=== PATIENT | female | born 1995 | race Caucasian/White ===

== ENCOUNTER → 2021-03-05 | Outpatient (CLI) | payer OTHER ==
--- NOTE | 2021-03-05 10:58 | REP ---
INDICATION: ACHILLES TENDINITIS. COMPARISON: None. TECHNIQUE: Four views FINDINGS: No acute fracture or destructive osseous lesion. The mortise is intact. There is a plantar calcaneal heel spur IMPRESSION: No acute abnormality <Electronically signed by Dereje Aguilar > 03/05/21 [id number]
--- NOTE | 2021-03-05 11:01 | REP ---
INDICATION: ACHILLES TENDINITIS COMPARISON: None. TECHNIQUE: TWO ORTHOGONAL VIEWS OF THE LEFT CALCANEUS. FINDINGS: CALCANEUS IS INTACT. SMALL CALCANEAL HEEL SPUR NOTED. ASSOCIATED JOINT SPACES ARE NORMAL. SURROUNDING SOFT TISSUES ARE UNREMARKABLE. IMPRESSION: NORMAL CALCANEAL RADIOGRAPHS.. INCIDENTAL SMALL CALCANEAL HEEL SPUR. <Electronically signed by Sherwin Loco > 03/05/21 [id number]
== END ==
LOC: M WUC 10:35
PROVIDERS: ATTEND Physician Assistant
DX: M76.52 Patellar tendinitis, left knee (principal); M25.572 Pain in left ankle and joints of left foot; M77.32 Calcaneal spur, left foot

== ENCOUNTER 2021-04-29 12:27 | Emergency (ER) | payer OTHER ==
[~2021-04-29] VITALS: Ht 170.2 cm; Wt 95.9 kg
[2021-04-29 17:48] LABS: BASO % 0.6 % (0.0-1.0); EOS # 0.1 10^3/uL (0.0-0.5); EOS % 1.7 % (0.0-3.0); HEMATOCRIT 40.8 % (36.0-47.0); HEMOGLOBIN 13.5 g/dl (12.0-15.5); LYMPH # 1.8 10^3/uL (1.5-5.0); LYMPH % 25.1 % (24.0-44.0); MEAN CORPUSCULAR HEMOGLOBIN 26.7 pg (27.0-33.0); MEAN CORPUSCULAR HGB CONC 33.1 g/dl (32.0-36.5); MEAN CORPUSCULAR VOLUME 80.8 fl (80.0-96.0); MONO # 0.4 10^3/uL (0.0-0.8); MONO % 5.3 % (2.0-8.0); NEUTROPHILS # 4.8 10^3/uL (1.5-8.5); NEUTROPHILS % 66.9 % (36.0-66.0); PLATELET COUNT, AUTOMATED 398 10^3/uL (150-450); RED BLOOD COUNT 5.05 10^6/uL (4.00-5.40); WHITE BLOOD COUNT 7.2 10^3/uL (4.0-10.0)
[2021-04-29 18:17] LABS: ALBUMIN 3.6 GM/DL (3.2-5.2); ALT/SGPT 15 U/L (12-78); BILIRUBIN,DIRECT 0.2 MG/DL (0.0-0.2); BILIRUBIN,TOTAL 0.6 MG/DL (0.2-1.0); BLOOD UREA NITROGEN 7 MG/DL (7-18); CALCIUM LEVEL 9.3 MG/DL (8.5-10.1); CARBON DIOXIDE LEVEL 26 MEQ/L (21-32); CHLORIDE LEVEL 107 MEQ/L (98-107); CREATININE FOR GFR 0.76 MG/DL (0.55-1.30); GLOMERULAR FILTRATION RATE > 60.0 (>60); GLUCOSE, FASTING 88 MG/DL (70-100); LIPASE 76 U/L (73-393); POTASSIUM SERUM 4.4 MEQ/L (3.5-5.1); SODIUM LEVEL 138 MEQ/L (136-145); TOTAL PROTEIN 7.3 GM/DL (6.4-8.2)
[2021-04-29 18:27] LABS: HCG, SERUM QUALITATIVE NEGATIVE (NEGATIVE)
[2021-04-29] MEDS ORDERED: KETOROLAC 30 MG/ML 1ML VIAL IV ONE (18:30)
[2021-04-29] MEDS ORDERED: NS 1,000 ML IV ONE (18:30)
[2021-04-29] MEDS ORDERED: ONDANSETRON 4MG/2ML VIAL IV ONE (18:30)
--- NOTE | 2021-04-29 19:28 | REP ---
INDICATION: RUQ pain started suddenly last night. fam hx of GB disease. COMPARISON: None TECHNIQUE: Real-time sonographic evaluation of the right upper quadrant FINDINGS: Multiple ultrasonographic images of the liver show the hepatic parenchymal echo texture to appear unremarkable. There are no focal masses. There is no intrahepatic ductal dilatation. The common bile duct measures approximately 4 mm in its greatest transverse dimension. Multiple ultrasonographic images of the gallbladder show no focal or diffuse gallbladder wall thickening. There are no echogenic foci within the gallbladder lumen, which casts acoustic shadows. There is no pericholecystic edema. Images of the pancreatic region show no gross abnormality. The imaged portion of the right kidney is unremarkable. IMPRESSION: Unremarkable right upper quadrant ultrasound. Accredited by the [employer] in General Ultrasound. <Electronically signed by Dereje Aguilar > 04/29/21 [id number]
[2021-04-29] MEDS ORDERED: ONDA4TAB6 PO (19:54)
[2021-04-29 20:18] VITALS: BP 135/78
[2021-04-29 20:26] LABS: RSV AMPLIFICATION NEGATIVE (NEGATIVE)
== END 2021-04-29 20:20 | disposition home or self-care (01) ==
LOC: M ED 12:27
DX: K80.50 Calculus of bile duct without cholangitis or cholecystitis without obstruction (principal); R10.11 Right upper quadrant pain; K58.9 Irritable bowel syndrome, unspecified; Z88.8 Allergy status to other drugs, medicaments and biological substances
CPT/HCPCS: 76705; 80048; 80076; 81001; 83690; 84703; 85025; 87086; 87631; 96361; 96374; 96375; 99284; J1885; J2405

== ENCOUNTER 2021-05-01 20:27 | Emergency (ER) | payer OTHER ==
[~2021-05-01] VITALS: Ht 175.3 cm; Wt 95.5 kg
[~2021-05-01 20:27] MED LIST: ONDA4TAB6 PO
[2021-05-01] MEDS ORDERED: ACETAMINOPHEN 500 MG TAB PO ONE (21:05)
[2021-05-01] MEDS ORDERED: ONDANSETRON 4MG/2ML VIAL IV ONE (21:05)
[2021-05-01] MEDS ORDERED: NS 1,000 ML IV ONE (21:05)
[2021-05-01 21:54] LABS: BASO # 0.1 10^3/uL (0.0-0.2); BASO % 0.7 % (0.0-1.0); EOS # 0.2 10^3/uL (0.0-0.5); EOS % 2.2 % (0.0-3.0); HEMATOCRIT 37.3 % (36.0-47.0); HEMOGLOBIN 12.5 g/dl (12.0-15.5); LYMPH # 1.8 10^3/uL (1.5-5.0); LYMPH % 25.7 % (24.0-44.0); MEAN CORPUSCULAR HEMOGLOBIN 26.7 pg (27.0-33.0); MEAN CORPUSCULAR HGB CONC 33.5 g/dl (32.0-36.5); MEAN CORPUSCULAR VOLUME 79.7 fl (80.0-96.0); MONO # 0.5 10^3/uL (0.0-0.8); MONO % 6.5 % (2.0-8.0); NEUTROPHILS # 4.5 10^3/uL (1.5-8.5); NEUTROPHILS % 64.6 % (36.0-66.0); PLATELET COUNT, AUTOMATED 389 10^3/uL (150-450); RED BLOOD COUNT 4.68 10^6/uL (4.00-5.40)
[2021-05-01 22:23] LABS: ALBUMIN 3.1 GM/DL (3.2-5.2); ALT/SGPT 13 U/L (12-78); BILIRUBIN,DIRECT 0.1 MG/DL (0.0-0.2); BILIRUBIN,TOTAL 0.4 MG/DL (0.2-1.0); BLOOD UREA NITROGEN 5 MG/DL (7-18); CARBON DIOXIDE LEVEL 27 MEQ/L (21-32); CHLORIDE LEVEL 107 MEQ/L (98-107); CREATININE FOR GFR 0.68 MG/DL (0.55-1.30); GLOMERULAR FILTRATION RATE > 60.0 (>60); GLUCOSE, FASTING 99 MG/DL (70-100); LIPASE 103 U/L (73-393); POTASSIUM SERUM 3.9 MEQ/L (3.5-5.1); SODIUM LEVEL 140 MEQ/L (136-145); TOTAL PROTEIN 6.5 GM/DL (6.4-8.2)
[2021-05-01 22:45] VITALS: BP 95/50
--- NOTE | 2021-05-01 23:13 | REPVR ---
PROCEDURE INFORMATION: Exam: US Abdomen, Limited; Right Upper Quadrant Exam date and time: 05/01/2021 9:25 PM Age: 26 years old Clinical indication: Abdominal pain; Acute; Additional info: Ruq into back, worse since prior visit 04/29 TECHNIQUE: Imaging protocol: US abdomen. Real time ultrasound with image documentation. Limited exam focused on the right upper quadrant. COMPARISON: Abdomen, limited US 04/29/2021 6:44 PM FINDINGS: Liver: The liver demonstrates no focal defects. Gallbladder: The gallbladder is contracted with question of some internal echogenic foci which may reflect a cholesterol stone or polyp. No shadowing stones are noted. Common bile duct: The CBD measures 3 mm. Pancreas: The pancreas is normal. Right kidney: The right kidney is normal measuring 12.6 cm with no hydronephrosis. IMPRESSION: 1. Contracted gallbladder with question of small internal echogenic foci which may reflect a cholesterol stone or polyp. 2. Otherwise negative right upper quadrant sonogram. Electronically signed by: Dani Ochoa On 05/01/2021 23:13:27 PM
== END 2021-05-01 23:01 | disposition home or self-care (01) ==
LOC: M ED 20:27
DX: K80.50 Calculus of bile duct without cholangitis or cholecystitis without obstruction (principal); Z88.8 Allergy status to other drugs, medicaments and biological substances
CPT/HCPCS: 76705; 80048; 80076; 83690; 85025; 96361; 96374; 99284; J2405

== ENCOUNTER → 2022-03-09 | Outpatient (CLI) | payer OTHER | LOC: M WUC 13:17 | PROVIDERS: ATTEND Physician Assistant | DX: M25.571 Pain in right ankle and joints of right foot (principal) ==